=== PATIENT | male | born 1990 | race African-American/Black ===

== ENCOUNTER 2018-05-13 17:29 | Observation (INO) ==
[2018-05-13] MEDS ORDERED: Isovue-370 500 ML INFUS..BTL IV ONE (17:56)
--- NOTE | 2018-05-13 18:09 | Emergency Department Note ---
Disposition Clinical Impression: Acute appendicitis Qualifiers: Acute appendicitis type: with localized peritonitis Appendicitis gangrene presence: without gangrene Appendicitis perforation presence: without perforation Appendicitis abscess presence: without abscess Qualified Code(s): K35.30 - Acute appendicitis with localized peritonitis, without perforation or gangrene Disposition: Admitted As Inpatient Condition: Good Abdominal Pain HPI - General Chief Complaint: ED Abdominal Pain Stated Complaint: ABD Pain Time Seen by Provider: 05/13/18 17:36 Source: patient Mode of arrival: private vehicle Limitations: no limitations Nursing Notes Reviewed: Yes Vital Signs Reviewed: Yes - History of Present Illness HPI Narrative: 27-year-old male no medical or surgical history who presents to the ER with a complaint of abdominal pain. Symptoms began yesterday. Reports initially periumbilical no noted to be more on the right side of his abdomen. He was seen at urgent care earlier today who encouraged him to come here for evaluation. He denies any nausea vomiting or diarrhea. He had a workup over the summer for diarrhea with a negative colonoscopy. Denies any fevers. Does have some pain with urination. No discharge or concern for STD exposure. No other complaints. Pt Subjective Complaint: abdominal pain Onset (ago): hour(s) Consistency: constant Location: periumbilical, RLQ Pain Severity: mild Pain Scale: 2 Radiation: none Migration to: RLQ Improves with: nothing Worsens with: nothing Associated symptoms: Denies: nausea, vomiting, diarrhea, fever, dysuria Treatments prior to arrival: none - Related Data Home Medications Medication Instructions Recorded Confirmed Albuterol Sulfate [Ventolin Hfa] 2 puff IH Q4H PRN 05/13/18 05/13/18 Budesonide/Formoterol 160/4.5 2 puff IH BID 05/13/18 05/13/18 [Symbicort 160/4.5] Montelukast [Singulair] 10 mg PO DAILY 05/13/18 05/13/18 Allergies Allergy/AdvReac Type Severity Reaction Status Date / Time No Known Allergies Allergy Verified 03/06/18 11:03 All systems ED: reviewed and negative except as stated. Constitutional: Denies: fever, chills Gastrointestinal: Reports: abdominal pain. Denies: nausea, vomiting, diarrhea Genitourinary: Denies: dysuria, hematuria, discharge Abdominal Pain PMH - Past Medical History Medical history: Reports: asthma Male Surgical History: Reports: other Psychiatric history: Reports: anxiety - Social History Smoking status: Never smoker Alcohol use: Reports: rarely Drug use: Reports: none Physical Exam - General Limitations: no limitations General appearance: alert, in no apparent distress - Head Head exam: atraumatic, normocephalic, normal inspection - Eye Eye exam: Present: normal appearance - ENT ENT exam: normal exam - Neck Neck exam: Present: normal inspection - Chest Chest inspection: Present: normal inspection, symmetric chest wall rise - Respiratory Respiratory exam: Present: normal lung sounds bilaterally - Cardiovascular Cardiovascular exam: Present: regular rate, normal rhythm, normal heart sounds - Abdominal Exam Abdominal exam: Present: soft, tenderness (Moderate right lower quadrant tenderness). Absent: distention, guarding, rigidity - Extremities Exam Extremities exam: Present: normal inspection, full ROM - Expanded Upper Extremity Exam Shoulder exam: Present: normal inspection, full ROM Arm exam: Present: normal inspection, full ROM Elbow exam: Present: normal inspection, full ROM Forearm/Wrist exam: Present: normal inspection, full ROM Hand exam: Present: normal inspection, full ROM - Expanded Lower Extremity Exam Hip/Pelvis exam: Present: normal inspection, full ROM Upper leg exam: Present: normal inspection, full ROM Knee exam: Present: normal inspection, full ROM Lower leg exam: Present: normal inspection, full ROM Ankle exam: Present: normal inspection, full ROM Foot/toe exam: Present: normal inspection, full ROM - Skin Skin exam: Present: warm, dry Course Course Narrative: Patient seen and examined. Vital signs reviewed. Plan for CT imaging, labs, urinalysis. - Consultations Consultation #1: Discussed this case with the on-call surgeon Dr. Pathak. He will be down to see the patient. Vital Signs Temperature 98.3 F 05/13/18 17:30 Pulse Rate 93 05/13/18 17:30 Respiratory Rate 18 05/13/18 17:30 Blood Pressure 154/99 05/13/18 17:30 O2 Sat by Pulse Oximetry 99 05/13/18 17:30 Temperature 98.3 F 05/13/18 17:58 Pulse Rate 89 05/13/18 20:11 Respiratory Rate 16 05/13/18 20:11 Blood Pressure 133/83 05/13/18 20:11 O2 Sat by Pulse Oximetry 100 05/13/18 20:11 Oxygen Delivery Oxygen Delivery Room Air Abdominal Pain - MDM Narrative Medical decision making narrative: 27-year-old male presenting with 2 days of abdominal pain found to have acute uncomplicated appendicitis. Labs demonstrate leukocytosis with left shift. Hemodynamically stable. Zosyn for antibiotic coverage. Patient admitted for further management. - Lab Data Lab results reviewed: Yes I reviewed the patient's lab results. Result diagrams: 05/13/18 18:07 05/13/18 18:07 Lab Results 05/13/18 05/13/18 05/13/18 Range/Units 18:07 18:07 18:07 WBC 15.4 H (4.3-11.1) K/mcL RBC 5.17 (4.19-5.50) M/mcL Hgb 15.7 (12.9-16.9) g/dL Hct 47.5 (37.5-50.1) % MCV 91.9 (83.0-100.0) fL MCH 30.4 (28.0-33.3) pg MCHC 33.1 (31.6-35.5) g/dL RDW 12.1 (11.5-14.5) % Plt Count 254 (140-400) K/mcL MPV 11.0 (9.4-12.4) fL Immature Gran % 0.3 (0-4) % Seg Neutrophils % 73.2 % Lymphocytes % 18.5 % Monocytes % 7.2 % Eosinophils % 0.7 % Basophils % 0.1 % Neutrophils # 11.3 H (1.6-8.9) K/mcL Lymphocytes # 2.8 (0.6-4.6) K/mcL Monocytes # 1.1 (0.0-1.3) K/mcL Eosinophils # 0.1 (0.0-0.6) K/mcL Basophils # 0.0 (0.0-0.2) K/mcL PT 10.8 (9.4-12.1) Seconds INR 1.0 Sodium (136-145) mEq/L Potassium (3.5-5.1) mEq/L Chloride (98-107) mEq/L Carbon Dioxide (23-29) mEq/L BUN (6-20) mg/dL Creatinine (0.70-1.30) mg/dL Est GFR ( Amer) (> 60) Est GFR (Non-Af Amer) (> 60) BUN/Creatinine Ratio (6-26) Glucose (70-105) mg/dL Calculated Osmolality (280-300) Calcium (8.6-10.3) mg/dL Total Bilirubin (0.3-1.0) mg/dL Direct Bilirubin (0.0-0.2) mg/dL Indirect Bilirubin (0.0-1.2) mg/dL AST (13-39) Units/L ALT (7-52) Units/L Alkaline Phosphatase (34-104) Units/L Serum Total Protein (6.4-8.9) g/dL Albumin (3.5-5.7) g/dL Globulin (2.4-3.5) g/dL Albumin/Globulin Ratio (1.1-2.2) Lipase (11-82) Units/L Urine Color Yellow (Yellow) Urine Clarity Clear (Clear) Urine pH 7.0 (5.0-8.0) pH Units Ur Specific [place] 1.017 (1.010-1.025) Urine Protein Negative (Neg-Trace) mg/dL Urine Glucose (UA) Normal (Normal) mg/dL Urine Ketones Negative (Negative) mg/dL Urine Blood Negative (Negative) Urine Nitrite Negative (Negative) Urine Bilirubin Negative (Negative) Urine Urobilinogen Normal (Normal) mg/dL Ur Leukocyte Esterase Negative (Negative) Ur Culture Indicated? NO (NO) 05/13/18 Range/Units 18:07 WBC (4.3-11.1) K/mcL RBC (4.19-5.50) M/mcL Hgb (12.9-16.9) g/dL Hct (37.5-50.1) % MCV (83.0-100.0) fL MCH (28.0-33.3) pg MCHC (31.6-35.5) g/dL RDW (11.5-14.5) % Plt Count (140-400) K/mcL MPV (9.4-12.4) fL Immature Gran % (0-4) % Seg Neutrophils % % Lymphocytes % % Monocytes % % Eosinophils % % Basophils % % Neutrophils # (1.6-8.9) K/mcL Lymphocytes # (0.6-4.6) K/mcL Monocytes # (0.0-1.3) K/mcL Eosinophils # (0.0-0.6) K/mcL Basophils # (0.0-0.2) K/mcL PT (9.4-12.1) Seconds INR Sodium 140 (136-145) mEq/L Potassium 4.7 (3.5-5.1) mEq/L Chloride 105 (98-107) mEq/L Carbon Dioxide 29 (23-29) mEq/L BUN 17 (6-20) mg/dL Creatinine 1.14 (0.70-1.30) mg/dL Est GFR ( Amer) > 60 (> 60) Est GFR (Non-Af Amer) > 60 (> 60) BUN/Creatinine Ratio 15 (6-26) Glucose 95 (70-105) mg/dL Calculated Osmolality 291 (280-300) Calcium 10.2 (8.6-10.3) mg/dL Total Bilirubin 0.4 (0.3-1.0) mg/dL Direct Bilirubin 0.1 (0.0-0.2) mg/dL Indirect Bilirubin 0.3 (0.0-1.2) mg/dL AST 20 (13-39) Units/L ALT 16 (7-52) Units/L Alkaline Phosphatase 39 (34-104) Units/L Serum Total Protein 7.2 (6.4-8.9) g/dL Albumin 4.7 (3.5-5.7) g/dL Globulin 2.5 (2.4-3.5) g/dL Albumin/Globulin Ratio 1.9 (1.1-2.2) Lipase 23 (11-82) Units/L Urine Color (Yellow) Urine Clarity (Clear) Urine pH (5.0-8.0) pH Units Ur Specific [place] (1.010-1.025) Urine Protein (Neg-Trace) mg/dL Urine Glucose (UA) (Normal) mg/dL Urine Ketones (Negative) mg/dL Urine Blood (Negative) Urine Nitrite (Negative) Urine Bilirubin (Negative) Urine Urobilinogen (Normal) mg/dL Ur Leukocyte Esterase (Negative) Ur Culture Indicated? (NO) - Radiology Data Radiology results reviewed: Yes I reviewed the patient's radiology results. Abdomen/Pelvis CT 05/13/18 17:56 IMPRESSION: 1. Acute uncomplicated appendicitis. 2. Trace pelvic ascites. D/ / Rick Chang MD / Rick Chang MD Interpreting Provider: Rick Chang MD Attestation Statement - Attestation Attestation: I examined this patient and my medical decision-making was reviewed with the Resident Physician. I agree with the documented findings, disposition and treatment plan as described except to the extent set forth below. Findings consistent with acute appendicitis. Would recommend admission for surgical consultation and surgical removal. Antibiotics were initiated.
[2018-05-13 18:46] LABS: Basophils % 0.1 %; Eosinophils # 0.1 K/mcL (0.0-0.6); Eosinophils % 0.7 %; Hematocrit 47.5 % (37.5-50.1); Hemoglobin 15.7 g/dL (12.9-16.9); Immature Granulocytes % 0.3 % (0-4); Lymphocytes # 2.8 K/mcL (0.6-4.6); Lymphocytes % 18.5 %; Mean Corpuscular HGB Conc 33.1 g/dL (31.6-35.5); Mean Corpuscular Hemoglobin 30.4 pg (28.0-33.3); Mean Corpuscular Volume 91.9 fL (83.0-100.0); Monocytes # 1.1 K/mcL (0.0-1.3); Monocytes % 7.2 %; Neutrophils # 11.3 K/mcL (1.6-8.9); Platelet Count 254 K/mcL (140-400); Red Blood Count 5.17 M/mcL (4.19-5.50); Red Cell Distribution Width 12.1 % (11.5-14.5); Segmented Neutrophils % 73.2 %
[2018-05-13 18:52] LABS: Bilirubin,Urine Negative (Negative); Blood,Urine Negative (Negative); Clarity,Urine Clear (Clear); Color,Urine Yellow (Yellow); Glucose,Urine (UA) Normal (Normal); Ketones,Urine Negative (Negative); Leukocyte Esterase,Urine Negative (Negative); Nitrite,Urine Negative (Negative); Protein,Urine Negative (Neg-Trace); Specific Gravity,Urine 1.017 (1.010-1.025); Urobilinogen,Urine Normal (Normal)
[2018-05-13 18:53] LABS: Prothrombin Time 10.8 Seconds (9.4-12.1)
[2018-05-13 18:58] LABS: Alanine Aminotransferase 16 Units/L (7-52); Albumin 4.7 g/dL (3.5-5.7); Albumin/Globulin Ratio 1.9 (1.1-2.2); Alkaline Phosphatase 39 Units/L (34-104); Aspartate Amino Transferase 20 Units/L (13-39); BUN/Creatinine Ratio 15 (6-26); Bilirubin,Direct 0.1 mg/dL (0.0-0.2); Bilirubin,Indirect 0.3 mg/dL (0.0-1.2); Bilirubin,Total 0.4 mg/dL (0.3-1.0); Blood Urea Nitrogen 17 mg/dL (6-20); Calcium 10.2 mg/dL (8.6-10.3); Carbon Dioxide 29 mEq/L (23-29); Chloride 105 mEq/L (98-107); Globulin 2.5 g/dL (2.4-3.5); Glucose 95 mg/dL (70-105); Lipase 23 Units/L (11-82); Osmolality,Calculated 291 (280-300); Potassium 4.7 mEq/L (3.5-5.1); Sodium 140 mEq/L (136-145); Total Protein 7.2 g/dL (6.4-8.9); eGFR For Non-African Americans > 60 (> 60)
[2018-05-13] MEDS ORDERED: 0.9 % Sodium Chloride 1,000 ML IVC ONE (20:32)
[2018-05-13] MEDS ORDERED: Piperacillin/Tazobactam 3.375 GM in Water for inj. (sterile) 20 ML 20 ML IVP ONE (20:35)
--- NOTE | 2018-05-13 21:20 | General Surg History&Physical ---
Date of Encounter: 05/13/18 Time of Encounter: 21:18 Assessment and Plan (1) Acute appendicitis Current Visit: Yes Status: Acute The assessment and plan as outlined above was discussed with the patient and/or family members who expressed understanding and agreement. All questions were answered. I explained to the patient that he does have evidence of acute appendicitis. Based upon the CT scan images which I personally reviewed and his clinical fin dings I think it would be appropriate to proceed with a laparoscopic appendectomy. Risks and benefits discussed with the patient and he agrees to the above plan. Qualifiers: Acute appendicitis type: with localized peritonitis Appendicitis gangrene presence: without gangrene Appendicitis perforation presence: without perforation Appendicitis abscess presence: without abscess Qualified Code(s): K35.30 - Acute appendicitis with localized peritonitis, without pe rforation or gangrene History of Present Illness Chief complaint: Periumbilical and right lower quadrant pain HPI: Mr. Ambrocoi is a 27 year old male with a past medical history significant for asthma states that yesterday afternoon he started having some periumbilical lower abdominal pain that started to radiate to the right lower quadrant. The pain was persistent and constant and started to worsen because of his worsening discomfort and pain he presented to the emergency room today for further evaluation. He denies any nausea or vomiting and denies any diarrhea or constipation symptoms. Past Med Surg Social Fam HX - Past Medical History Medical history: asthma Psychiatric history: anxiety - Past Surgical History Additional surgical history: tonsils and adenoidectomy, wisdom teeth extraction - Social History Smoking Status: Never smoker Smokeless Tobacco Status: No Alcohol use: rarely Drug use: none Medications and Allergies Allergy/AdvReac Type Severity Reaction Status Date / Time No Known Allergies Allergy Verified 03/06/18 11:03 Review of Systems All systems PM: reviewed and no additional remarkable complaints except as stated All systems PM: The remainder of the systems were reviewed and are negative General Surgery Exam Initial Vital Signs Temp Pulse Resp BP Pulse Ox 98.3 F 93 18 154/99 99 05/13/18 17:30 05/13/18 17:30 05/13/18 17:30 05/13/18 17:30 05/13/18 17:30 - Eyes PERRL, normal ocular movement - Respiratory normal expansion, normal respiratory effort, clear to auscultation - Cardiovascular Cardiovascular exam: Present: RRR, no murmurs/rubs/gallops - Abdomen Abdomen general surgery: Present: bowel sounds present, soft, tender Abdominal Tenderness: Present: RLQ - Neurologic Present: CN 2-12 grossly intact - Musculoskeletal Present: other (No ring, cyanosis, or edema) Results - Labs 05/13/18 18:07 05/13/18 18:07 Abnormal lab results WBC 15.4 K/mcL (4.3-11.1) H 05/13/18 18:07 Neutrophils # 11.3 K/mcL (1.6-8.9) H 05/13/18 18:07 Diabetes panel 05/13/18 Range/Units 18:07 Sodium 140 (136-145) mEq/L Potassium 4.7 (3.5-5.1) mEq/L Chloride 105 (98-107) mEq/L Carbon Dioxide 29 (23-29) mEq/L BUN 17 (6-20) mg/dL Creatinine 1.14 (0.70-1.30) mg/dL Glucose 95 (70-105) mg/dL Calcium 10.2 (8.6-10.3) mg/dL AST 20 (13-39) Units/L ALT 16 (7-52) Units/L Alkaline Phosphatase 39 (34-104) Units/L Albumin 4.7 (3.5-5.7) g/dL Calcium panel 05/13/18 Range/Units 18:07 Calcium 10.2 (8.6-10.3) mg/dL Albumin 4.7 (3.5-5.7) g/dL Pituitary panel 05/13/18 Range/Units 18:07 Sodium 140 (136-145) mEq/L Potassium 4.7 (3.5-5.1) mEq/L Chloride 105 (98-107) mEq/L Carbon Dioxide 29 (23-29) mEq/L BUN 17 (6-20) mg/dL Creatinine 1.14 (0.70-1.30) mg/dL Glucose 95 (70-105) mg/dL Calcium 10.2 (8.6-10.3) mg/dL Adrenal panel 05/13/18 Range/Units 18:07 Sodium 140 (136-145) mEq/L Potassium 4.7 (3.5-5.1) mEq/L Chloride 105 (98-107) mEq/L Carbon Dioxide 29 (23-29) mEq/L BUN 17 (6-20) mg/dL Creatinine 1.14 (0.70-1.30) mg/dL Glucose 95 (70-105) mg/dL Calcium 10.2 (8.6-10.3) mg/dL Total Bilirubin 0.4 (0.3-1.0) mg/dL AST 20 (13-39) Units/L ALT 16 (7-52) Units/L Alkaline Phosphatase 39 (34-104) Units/L Albumin 4.7 (3.5-5.7) g/dL All other labs normal. - Imaging CT scan - abdomen: report reviewed, image reviewed (Evidence of a thickened appendix consistent with acute appendicitis.)
[2018-05-14] MEDS ORDERED: Ondansetron 4 MG/2 ML VIAL IVP ONE (00:19)
[2018-05-14] MEDS ORDERED: *HR* Meperidine 25 MG/ML SYRINGE IVP PRN (00:19)
[2018-05-14] MEDS ORDERED: *HR* FentaNYL (PF) 100 MCG/2 ML VIAL IVP PRN (00:19)
[2018-05-14] MEDS ORDERED: *HR* Promethazine 25 MG/ML VIAL IVP PRN (00:19)
[2018-05-14] MEDS ORDERED: *HR* OxyCODONE Immed Rel 5 MG TABLET PO PRN (00:19)
--- NOTE | 2018-05-14 00:19 | Anesthesia Evaluation PreOp ---
Date of Encounter: 05/14/18 Time of Encounter: 00:17 - Past History Planned Operation: lap appendectomy Cardiac History: Denies any Significant Hx Pulmonary History: Asthma Other Medical History: Other (anxiety) Anesthesia History: No Prior Anesthetic Complications, Past Anesthesia (tonsills, wisdom teeth) Alcohol Use: rarely Drug use: none Medications and Allergies Albuterol Sulfate [Ventolin Hfa] 2 puff IH Q4H PRN 05/13/18 [History] Budesonide/Formoterol 160/4.5 [Symbicort 160/4.5] 2 puff IH BID 05/13/18 [History] Montelukast [Singulair] 10 mg PO DAILY 05/13/18 [History] Allergy/AdvReac Type Severity Reaction Status Date / Time No Known Allergies Allergy Verified 03/06/18 11:03 - Meds/Allergy Pre-op Review Medications Reviewed: Yes Allergies Reviewed: Yes Beta Blockers on Current Med List: No Anesthesia Results - Labs 05/13/18 18:07 05/13/18 18:07 Anesthesia Exam Vital Signs/O2 Sat, Most Current Temp Pulse Resp BP Pulse Ox 98.3 F 74 14 137/89 97 05/13/18 22:39 05/13/18 22:39 05/13/18 22:39 05/13/18 22:39 05/13/18 22:39 Weight: 100kg NPO (# of Hours): acute abd - HEENT Pupil (Motor): Pupils equal, EOMI Mallampati: II (full michel) Teeth: Normal Oral Opening: Greater than 3 - OFFAL ICER POULTRY LOC: Oriented OFFAL ICER POULTRY Motor: Normal RUE, Normal LUE, Normal RLE, Normal LLE, Normal Face OFFAL ICER POULTRY Sensory: Normal: RUE, LUE, RLE, LLE, Face - Cardiac Rhythm: Regular - Pulmonary Breath Sounds: bilateral Clear Respiratory Effort: Symmetrical Anesthesia Assess/Plan ASA Score: 2, E Level of consciousness: Cooperative Anesthetic Plan: General Monitoring Plan: Standard Monitors Recovery Plan: PACU
[2018-05-14] MEDS ORDERED: *HR* Rocuronium Bromide 50 MG/5 ML VIAL ONE (00:22)
[2018-05-14] MEDS ORDERED: Lidocaine -MPF 4% 5 ML AMPUL ONE (00:22)
[2018-05-14] MEDS ORDERED: *HR* Succinylcholine 200 MG/10 ML VIAL IVP ONE (00:22)
[2018-05-14] MEDS ORDERED: Lidocaine -MPF 2% 2 ML VIAL ONE (00:22)
[2018-05-14] MEDS ORDERED: *HR* Propofol 200 MG/20 ML VIAL IVP ONE (00:22)
[2018-05-14] MEDS ORDERED: *HR* FentaNYL (PF) 100 MCG/2 ML VIAL ONE (00:22)
[2018-05-14] MEDS ORDERED: Ringers Solution, Lactated 1,000 ML IVC SCH (00:30)
[2018-05-14] MEDS ORDERED: Ipratropium/Albuterol Neb 3 ML ONE (03:48)
[2018-05-14] MEDS ORDERED: Acetaminophen IV 1,000 MG/100 ML INFUS..BTL ONE (03:55)
[2018-05-14] MEDS ORDERED: Ipratropium/Albuterol Neb 3 ML IH ONE (03:56)
[2018-05-14] MEDS ORDERED: Dexamethasone 4 MG/ML VIAL ONE (04:40)
[2018-05-14] MEDS ORDERED: Ondansetron 4 MG/2 ML VIAL ONE (04:40)
[2018-05-14] MEDS ORDERED: CefOXitin 2,000 MG VIAL ONE (04:46)
--- NOTE | 2018-05-14 05:11 | Operative Note ---
Date of procedure: 05/14/18 Pre-op diagnosis: Acute appendicitis Post-op diagnosis: same Procedure: Laparoscopic appendectomy Anesthesia: GETA Surgeon: Brice Pathak Was there an registered dental assistant rda present: No Estimated blood loss (cc): 4 Specimen: appendix Condition: stable Disposition: PACU Procedure in Detail: Date of surgery: 05/14/18 After properly identifying the patient, the patient was brought to the operating room and placed in the supine position. After proper IV sedation was achieved followed by general endotracheal intubation, the patient's abdomen was prepped and draped in a normal sterile fashion. A timeout was performed noting the patient's name and type of procedure to be performed. Half percent Marcaine was used to infiltrate the epidermal and dermal and subcutaneous tissue in the inferior region. An 11 blade scalpel was then used to make an incision in this area down to the rectus fascia which was also incised. Once the abdomen was entered a 12 mm port was placed through the incision and the abdomen was insufflated with carbon dioxide. A laparoscopic camera was placed through the port which showed no injury to the intra-abdominal organs upon entry. A suprapubic 5 mm port and a left lower quadrant 5 mm port were then placed under direct camera visualization after these areas were first infiltrated with half percent Marcaine solution. The patient was placed in a Trendelenburg position and the right lower quadrant was examined after the patient was placed in the left lateral decubitus position. The appendix appeared to be distended which was consistent with appendicitis. A [place] dissector was used to dissect between the mesentery and the base of the appendix and both of these structures were dissected with a laparoscopic REAGAN stapler. The appendix was then removed from the abdomen via an Endobag and reinspection of the right lower quadrant demonstrated maintenance of hemostasis. The pelvis was examined and there was some milky colored fluid which was immediately suctioned. The right lower quadrant and pelvis were then copiously irrigated with normal saline solution. Once again the staple line was reexamined and there was no evidence of bleeding. All ports are then removed from the abdomen after the abdomen was desufflated. The rectus fascia for the subumbilical incision was reapproximated with a [id number] 0 Vicryl suture. The subcutaneous tissue was reapproximated with a 3-0 Vicryl suture and the epidermal and dermal layers for the remaining incisions were closed with 4-0 Monocryl sutures. Needle, sponge, and instrument counts were correct 2 and incisions were covered with Steri-Strips and Band- Aids. The patient was aroused from IV sedation, extubated in the operating room without complication, and transported to the recovery room stable condition.
[2018-05-14] MEDS ORDERED: 0.9 % Sodium Chloride 1,000 ML IVC SCH (05:27)
[2018-05-14] MEDS ORDERED: *HR* OxyCODONE/APAP 7.5/325 TABLET PO PRN (05:27)
[2018-05-14] MEDS ORDERED: MORPHINE SUL Oral CONC 10 MG/0.5 ML ORAL.SYG SL PRN (05:27)
[2018-05-14] MEDS ORDERED: Ondansetron 4 MG/2 ML VIAL IVP PRN (05:27)
--- NOTE | 2018-05-14 05:54 | Anesthesia Evaluation Post Op ---
Date of Encounter: 05/14/18 Time of Encounter: 05:53 - Vital Signs Vital Signs: Vital Signs/O2 Sat, Most Current Temp Pulse Resp BP Pulse Ox 97.7 F 67 12 130/89 95 05/14/18 05:30 05/14/18 05:50 05/14/18 05:50 05/14/18 05:50 05/14/18 05:50 - Lungs Lungs: Clear Ascult./Percussion - Airway Airway: Non-obstructed - Cardiovascular Regular Rate - Mental Status Mental Status: Asleep with brisk response to light stimulation - Pain Pain Scale: 0 Pain Scale used: Numeric (1 - 10) - Nausea Vomiting Nausea Vomiting: Not Present - Hydration Hydration: Tolerates oral liquids - Discharge PostOp Status: Transfer Patient to floor
[2018-05-14] MEDS ORDERED: Piperacillin/Tazobactam 3.375 GM in 0.9 % Sodium Chloride Mini Bag 100 ML IVPB SCH (06:00)
[2018-05-14] MEDS ORDERED: Pantoprazole 40 MG VIAL IVP SCH (06:30)
[2018-05-14 07:28] LABS: Basophils % 0.1 %; Eosinophils # 0.1 K/mcL (0.0-0.6); Eosinophils % 0.7 %; Hemoglobin 13.8 g/dL (12.9-16.9); Immature Granulocytes % 0.4 % (0-4); Lymphocytes # 1.5 K/mcL (0.6-4.6); Lymphocytes % 17.8 %; Mean Corpuscular HGB Conc 32.9 g/dL (31.6-35.5); Mean Corpuscular Hemoglobin 30.4 pg (28.0-33.3); Mean Corpuscular Volume 92.5 fL (83.0-100.0); Mean Platelet Volume 10.8 fL (9.4-12.4); Monocytes # 0.3 K/mcL (0.0-1.3); Monocytes % 3.5 %; Neutrophils # 6.4 K/mcL (1.6-8.9); Platelet Count 192 K/mcL (140-400); Red Blood Count 4.54 M/mcL (4.19-5.50); Red Cell Distribution Width 12.4 % (11.5-14.5); Segmented Neutrophils % 77.5 %
[2018-05-14] MEDS ORDERED: Ibuprofen 800 MG TABLET PO ONE (08:08)
[2018-05-14] MEDS ORDERED: Budesonide/Formoterol 160/4.5 1 PUFF INH IH SCH (10:00)
--- NOTE | 2018-05-14 10:35 | Discharge Summary ---
Orders not resulted at time of discharge: Pending orders 05/14/18 05:24 Surgical Pathology [PTH] Routine Date of Encounter: 05/14/18 Time of Encounter: 10:37 - Discharge Diagnosis (1) Acute appendicitis Priority: Primary Status: Resolved Qualifiers: Acute appendicitis type: with localized peritonitis Appendicitis gangrene presence: without gangrene Appendicitis perforation presence: without perforation Appendicitis abscess presence: without abscess Qualified Code(s): K35.30 - Acute appendicitis with localized peritonitis, without perforation or gangrene General Surgery Exam Initial Vital Signs Temp Pulse Resp BP Pulse Ox 98.3 F 93 18 154/99 99 05/13/18 17:30 05/13/18 17:30 05/13/18 17:30 05/13/18 17:30 05/13/18 17:30 Vital Signs Temp Pulse Resp BP Pulse Ox 05/14/18 07:05 97.5 F L 65 20 128/82 96 05/14/18 06:25 97.4 F L 71 16 138/89 97 05/14/18 06:00 98.7 F 67 12 135/95 96 05/14/18 05:50 67 12 130/89 95 05/14/18 05:40 70 14 126/79 94 05/14/18 05:30 97.7 F 66 12 131/90 97 05/13/18 22:39 98.3 F 74 14 137/89 97 05/13/18 21:51 98.2 F 72 16 139/86 98 05/13/18 20:11 89 16 133/83 100 05/13/18 17:58 98.3 F 75 18 152/106 99 05/13/18 17:30 98.3 F 93 18 154/99 99 Intake and Output 05/13/18 05/14/18 05/14/18 23:59 07:59 15:59 Intake Total 1020 / 1020 240 / 240 Output Total 4 / 4 Balance 1020 / 1020 -4 / -4 240 / 240 Intake: IV Fluids 1020 / 1020 0.9 % Sodium Chloride 1,000 ML 1000 / 1000 @ 999 mls/hr IVC .Q1H1M ONE Rx# :[id number] Zosyn 3.375 GM In Water for inj . (sterile) 20 ML @ 400 mls/hr IVP ONCE ONE Rx#:[id number] Oral 240 / 240 Output: Estimated Blood Loss / Other: Meal Breakfast Percent of Meal Consumed 85% Stool Characteristics Normal for Patient Weight 100.1 kg VITAL SIGNS: Reviewed. See [facility] GENERAL: In no apparent distress. HEENT: Normocephalic, atraumatic, pupils are equal and reactive, extraocular motions intact, oropharynx is pink and moist, there is no neck adenopathy or JVD noted. CHEST/RESPIRATORY: The thorax is free from signs of trauma. Lung sounds: clear to auscultation, normal respiratory effort CARDIAC: Regular rate and rhythm. Normal S1 and S2, without murmurs, gallops, or rubs. VASCULAR: No Edema. 2+ peripheral pulses. ABDOMEN: soft, expected postoperative tenderness, active bowel sounds, INCISION: Surgical incision is clean, dry, and intact. There are no signs of cellulitis or infection noted. MUSCULOSKELETAL: Good range of motion of all major joints. Extremities without clubbing, cyanosis or edema. NEUROLOGIC EXAM: Alert and oriented x 3. Speech normal. Follows commands. PSYCHIATRIC: Mood normal. SKIN: No rash or lesions. - Hospital Course Hospital course: Mr. Ambrocio is a 27 year old male who presented on 05/13/2018 with complaints of a one-day history of right lower quadrant pain. A CT scan was obtained which notes acute appendicitis. He also had a elevated white blood cell count which has since normalized. He is to was taken to the operating room where he underwent an uncomplicated laparoscopic appendectomy on 05/14/[address] Pathak. He is ambulating avoiding without difficulty, tolerating a diet without nausea or vomiting, afebrile, and abdominal discomfort is well- controlled. We will begin discharge planning to home with a follow-up in approximately 2 weeks. - Time Spent with Patient Total time spent providing and/or coordinating discharge services: - Discharge Medications Prescriptions: RX: OxyCODONE/APAP 5/325 [Percocet 5/325 MG] 1 each PO Q6HR PRN 7 Days #28 tablet PRN Reason: Pain Docusate Sodium [Colace] 100 mg PO BID PRN #30 capsule PRN Reason: Constipation RX: Ibuprofen 800 mg PO Q8H PRN #42 tablet PRN Reason: Mild Pain Home Medications: RX: Albuterol Sulfate [Ventolin Hfa] 2 puff IH Q4H PRN 05/13/18 [History] RX: Budesonide/Formoterol 160/4.5 [Symbicort 160/4.5] 2 puff IH BID 05/13/18 [History] RX: Montelukast [Singulair] 10 mg PO DAILY 05/13/18 [History] Docusate Sodium [Colace] 100 mg PO BID PRN #30 capsule 05/14/18 [Rx] RX: Ibuprofen 800 mg PO Q8H PRN #42 tablet 05/14/18 [Rx] RX: OxyCODONE/APAP 5/325 [Percocet 5/325 MG] 1 each PO Q6HR PRN 7 Days #28 tablet 05/14/18 [Rx] Allergies/Adverse Reactions: Allergy/AdvReac Type Severity Reaction Status Date / Time No Known Allergies Allergy Verified 03/06/18 11:03 Date of admission: 05/13/18 21:43 Primary care physician: Nataliia Garduno CNP Discharging clinician: Barb Deras Anticipated date of discharge: 05/14/18 Labs on day of discharge: Labs from last 24 hours 05/14/18 05/13/18 05/13/18 07:05 18:07 18:07 WBC 8.2 RBC 4.54 Hgb 13.8 D Hct 42.0 MCV 92.5 MCH 30.4 MCHC 32.9 RDW 12.4 Plt Count 192 MPV 10.8 Immature Gran % 0.4 Seg Neutrophils % 77.5 Lymphocytes % 17.8 Monocytes % 3.5 Eosinophils % 0.7 Basophils % 0.1 Neutrophils # 6.4 Lymphocytes # 1.5 Monocytes # 0.3 Eosinophils # 0.1 Basophils # 0.0 PT 10.8 INR 1.0 Sodium 140 Potassium 4.7 Chloride 105 Carbon Dioxide 29 BUN 17 Creatinine 1.14 Est GFR ( Amer) > 60 Est GFR (Non-Af Amer) > 60 BUN/Creatinine Ratio 15 Glucose 95 Calculated Osmolality 291 Calcium 10.2 Total Bilirubin 0.4 Direct Bilirubin 0.1 Indirect Bilirubin 0.3 AST 20 ALT 16 Alkaline Phosphatase 39 Serum Total Protein 7.2 Albumin 4.7 Globulin 2.5 Albumin/Globulin Ratio 1.9 Lipase 23 Urine Color Urine Clarity Urine pH Ur Specific [place] Urine Protein Urine Glucose (UA) Urine Ketones Urine Blood Urine Nitrite Urine Bilirubin Urine Urobilinogen Ur Leukocyte Esterase Ur Culture Indicated? 05/13/18 05/13/18 18:07 18:07 WBC 15.4 H RBC 5.17 Hgb 15.7 Hct 47.5 MCV 91.9 MCH 30.4 MCHC 33.1 RDW 12.1 Plt Count 254 MPV 11.0 Immature Gran % 0.3 Seg Neutrophils % 73.2 Lymphocytes % 18.5 Monocytes % 7.2 Eosinophils % 0.7 Basophils % 0.1 Neutrophils # 11.3 H Lymphocytes # 2.8 Monocytes # 1.1 Eosinophils # 0.1 Basophils # 0.0 PT INR Sodium Potassium Chloride Carbon Dioxide BUN Creatinine Est GFR ( Amer) Est GFR (Non-Af Amer) BUN/Creatinine Ratio Glucose Calculated Osmolality Calcium Total Bilirubin Direct Bilirubin Indirect Bilirubin AST ALT Alkaline Phosphatase Serum Total Protein Albumin Globulin Albumin/Globulin Ratio Lipase Urine Color Yellow Urine Clarity Clear Urine pH 7.0 Ur Specific [place] 1.017 Urine Protein Negative Urine Glucose (UA) Normal Urine Ketones Negative Urine Blood Negative Urine Nitrite Negative Urine Bilirubin Negative Urine Urobilinogen Normal Ur Leukocyte Esterase Negative Ur Culture Indicated? NO - Impressions ITS Impressions Abdomen/Pelvis CT 05/13/18 17:56 IMPRESSION: 1. Acute uncomplicated appendicitis. 2. Trace pelvic ascites. D/ / Rick Chang MD / Rick Chang MD Interpreting Provider: Rick Chang MD - Patient Status Disposition: Home, Self-Care Condition: Good Functional capacity at discharge: independent ambulation Overall status at discharge: patient is progressing back to baseline - Discharge Instructions Instructions: Laparoscopic Appendectomy (DC) Follow Up With: Nataliia Garduno CNP [Primary Care Provider] - Barb Deras CNP [Advanced Practice Nurse] - 05/28/18 1:45 pm Additional Instructions: General Surgical Discharge Instructions 1. No pushing, pulling, or lifting greater than 15 lbs for 2-4 weeks (depending upon procedure). 2. You may shower beginning today, but no tub baths, soaking, or swimming for 2 weeks. 3. You may resume driving when you are off narcotics and are safe to react in a car. 4. Take ibuprofen every 8 hours for discomfort. If this does not relieve discomfort, you may take the as needed Percocet. Take narcotics as directed. Do not take more narcotics then directed and do not share your narcotics with any other person. Do not drink alcohol while on narcotics. 5. Take stool softeners (Colace) or a water based laxative (Miralax) while taking narcotics. You may hold for loose stools. 6. Report any fevers greater than 100.5F, increase abdominal discomfort, drainage that looks like pus, increased redness or pain at the surgical site, or any vomiting. 7. Report any pain in the calves, shortness of breath, or rapid heartbeat. 8. Follow-up in the office as directed. 9. If you were prescribed antibiotics, do not stop them without talking to your provider. - Diet and Activity Activity: increase activity as tolerated, return to work once cleared by your PCP/specialist Diet: advance to your usual diet
[2018-05-14 11:16] VITALS: BP 105/51
== END 2018-05-14 13:50 | disposition home or self-care (01) ==
LOC: EMEROOARM 17:29 → 3ANU 17:29
PROVIDERS: ADMIT Surgery; ATTEND Surgery